=== PATIENT | female | born 1965 | race Asian ===

== ENCOUNTER 2018-11-23 08:51 | Day surgery (SDC) | payer OTHER ==
[~2018-11-23] VITALS: Ht 160 cm; Wt 66.0 kg
[~2018-11-23 08:51] MED LIST: PROPOFOL 200 MG INJ ONE
[2018-11-23 09:54] VITALS: Ht 160 cm; Wt 66.0 kg
[2018-11-23] MEDS ORDERED: HAL1 PO (10:02)
[2018-11-23] MEDS ORDERED: METO1TAB PO (10:02)
[2018-11-23] MEDS ORDERED: CONGENTIN (10:02)
[2018-11-23 10:24] VITALS: BP 159/101; PULSE 63; RESP 23
--- NOTE | 2018-11-23 10:45 | PREAC ---
Date/Time of Note Date/Time of Note DATE: 11/23/18 TIME: 10:44 Anesthesia Eval and Record Evaluation Time Pre-Procedure Interview DATE: 11/23/18 TIME: 10:44 Age 52 Sex female NPO: 8 hrs Preoperative diagnosis gerd Planned procedure egd, colonoscopy Past Medical History Past Medical History: Includes Cardio: HTN GI: GERD Surgery & Anesthesia Issues No known issue Meds Anticoagulation: No Beta Elias within 24 hr: No Reason Beta Elias not given: Pt. not on B-Elias Reported Medications Metoprolol Mercado/Hydrochlorothiaz (Metoprolol ER-Hctz 50-12.5 mg) 1 Each Tab.er.24h, 1 EACH PO DAILY 11/23/18 [Congentin] No Conflict Check, 2 ML DAILY 11/23/18 Haloperidol* (Haldol*) 1 Mg Tab, 6 MG PO DAILY, TAB 11/23/18 Meds reviewed: Yes Allergies Uncoded Allergies: PCN (Adverse Reaction, Severe, RASHES, 11/23/18) Allergies Reviewed: Yes Labs/Studies Labs Reviewed: Reviewed by anesthesiologist test: Negative Studies: ECG Pre-procedure Exam Last vitals Vital Signs Date Temp Pulse Resp B/P (MAP) Pulse Ox O2 O2 Flow FiO2 Time Delivery Rate 11/23/18 98.1 63 23 159/101 98 Room Air 10:24 (120) Airway: Adequate mouth opening, Adequate thyromental dist Mallampati: Mallampati II Teeth: Normal Lung: Normal Heart: Normal ASA Physical Status ASA physical status: 2 Emergency: None Planned Anesthetic General/MAC: Mask Pre-operative Attestations Prior to commencing anesthesia and surgery, the patient was re-evaluated, there was verification of: *The patient's identity *The results of appropriate recent lab work and preoperative vital signs *The above evaluation not changing prior to induction *Anesthetic plan, risk benefits, alternative and complications discussed with p atient/family; questions answered; patient/family understands, accepts and wishes to proceed. VINITA NEVAREZ Nov 23, 2018 10:45
[2018-11-23] MEDS ORDERED: PROPOFOL 40 ML ONE (10:47)
[2018-11-23] MEDS ORDERED: LIDOCAINE 100 MG SYRINGE ONE (10:47)
[2018-11-23 12:14] VITALS: BP 164/100; PULSE 64; RESP 18
--- NOTE | 2018-11-23 14:29 | PAC ---
Date/Time of Note Date/Time of Note DATE: 11/23/18 TIME: 14:29 Post-Anesthesia Notes Post-Anesthesia Note Last documented vital signs Vital Signs Date Temp Pulse Resp B/P (MAP) Pulse Ox O2 O2 Flow FiO2 Time Delivery Rate 11/23/18 97.9 64 18 164/100 97 Room Air 12:14 (121) Activity: WNL Respiratory function: WNL Cardiovascular function: WNL Mental status: Baseline Pain reasonably controlled: Yes Hydration appropriate: Yes Nausea/Vomiting absent: Yes VINITA NEVAREZ Nov 23, 2018 14:29
== END 2018-11-23 12:40 | disposition home or self-care (01) ==
LOC: GIL 08:51
PROVIDERS: ATTEND Internal Medicine Gastroenterology
DX: Z12.11 Encounter for screening for malignant neoplasm of colon (principal); K64.8 Other hemorrhoids; D12.5 Benign neoplasm of sigmoid colon; K21.9 Gastro-esophageal reflux disease without esophagitis
CPT/HCPCS: 43239; 45380; 84703; 88305; J2001; Z7610

== ENCOUNTER 2019-03-22 13:49 | Emergency (ER) | payer OTHER ==
[~2019-03-22] VITALS: Ht 165.1 cm; Wt 65.0 kg
[~2019-03-22 13:49] MED LIST changes: +CONGENTIN; +HAL1 PO; +METO1TAB PO; -PROPOFOL 200 MG INJ ONE
[2019-03-22 14:00] VITALS: Ht 165.1 cm; Wt 65.0 kg
--- NOTE | 2019-03-22 15:08 | ERD ---
ER Documentation Chief Complaint Chief Complaint FALL ON FACE 3-WEEKS AGO HPI 53-year-old female, with history of schizophrenia, currently taking Haldol, presents the emergency department, complaining of frontal headache after sustaining a ground-level fall with direct blunt trauma to the frontal area 3 weeks ago. The patient denies loss of consciousness, no blurred vision, no nausea or vomiting. No reports of distal weakness, numbness or tingling. ROS All systems reviewed and are negative except as per history of present illness. Medications Home Meds Active Scripts Acetaminophen* (Tylenol*) 325 Mg Tablet, 2 TAB PO Q6 PRN for PAIN AND OR ELEVATED TEMP, #20 TAB Prov:MORIAH TESFAYE MD 03/22/19 Reported Medications Metoprolol Mercado/Hydrochlorothiaz (Metoprolol ER-Hctz 50-12.5 mg) 1 Each Tab.er.24h, 1 EACH PO DAILY 11/23/18 [Congentin] No Conflict Check, 2 ML DAILY 11/23/18 Haloperidol* (Haldol*) 1 Mg Tab, 6 MG PO DAILY, TAB 11/23/18 Allergies Allergies: Coded Allergies: Penicillins (Verified Allergy, Unknown, rash, 03/22/19) erythromycin base (Verified Allergy, Unknown, rash, 03/22/19) naproxen (Verified Allergy, Unknown, hives,rash, 03/22/19) PMhx/Soc History of Surgery: Yes (UTERUS REMOVAL OF CELLS PER PT, polyps remocal on colon) Anesthesia Reaction: No Hx Neurological Disorder: No Hx Respiratory Disorders: No Hx Cardiac Disorders: Yes (HTN) Hx Psychiatric Problems: Yes (SCHIZOPRENIA) Hx Miscellaneous Medical Probl: No Hx Alcohol Use: No Hx Substance Use: No Hx Tobacco Use: No Smoking Status: Never smoker FmHx Family History: No diabetes, No coronary disease Physical Exam Vitals Vital Signs Date Temp Pulse Resp B/P (MAP) Pulse Ox O2 O2 Flow FiO2 Time Delivery Rate 03/22/19 98.1 78 16 126/79 99 Room Air 16:50 (95) 03/22/19 98.2 74 16 129/85 99 14:00 (100) Physical Exam Patient alert, oriented, vital signs stable. HEAD: Normocephalic, 3 superficial abrasions, Less than 1 cm,involving the nasal dorsum, frontal area and infraorbital right side, with adequate healing process., EYES: PERRLA, EOMI, Sclera and conjunctiva appear normal. NOSE: Clear and patent nostrils. EARS: Canals clear, tympanic membranes WNL. MOUTH: normal lips and tongue, no oral lesions. THROAT: Normal oropharynx, no tonsillar exudates. NECK: Supple, No lymphadenopathy. Full ROM without pain or tenderness. HEART: RRR, no rubs, murmurs, clicks or gallops. LUNGS: Clear to auscultation. ABDOMEN: Soft, non-tender without masses or hepatosplenomegaly. EXTREMITIES: No edema bilaterally. BACK: Full ROM, no deformity, normal back exam NEURO: Cranial nerves grossly intact, no motor or sensory deficit SKIN: No rashes, no petechia. Procedures/MDM Vital signs stable. Differential diagnosis include but not limited to: Head concussion, contusion, skull fracture, vertebral fracture, intracranial hemorrhage. Physical examination and clinical presentation consistent most likely with facial contusion. During the ED course the patient remained stable, no new complaints. The patient was instructed to follow up with the primary care provider in the next 48h. If symptoms persist, worsen or new symptoms develop like nausea, vomiting, behavioral changes, and lethargy, then patient should return to the ED immediately. Instructions explained and given directly by me to the mother with acknowledgment and demonstrated understanding. Disclaimer: Inadvertent spelling and grammatical errors are likely due to EHR/dictation software use and do not reflect on the overall quality of patient care. Also, please note that the electronic time recorded on this note does not necessarily reflect the actual time of the patient encounter. Departure Diagnosis: Primary Impression: Fall with no significant injury Additional Impression: Facial contusion Condition: Stable Patient Instructions: Facial Contusion, No Wakeup Additional Instructions: thank you very much for allowing us to participate in your care. Your health and safety is our top priority at [facility]. The evaluation in the emergency department has been done to rule out an acute emergency. Chronic, [id number] conditions may have not been evaluated; therefore, you need to follow up with a primary care provider in the next 48h. If symptoms persist, worsen or new symptoms develop, then patient should return to the ED immediately. Call your primary care doctor TOMORROW for an appointment during the next 2-4 days and bring all the information provided. Have prescriptions filled and follow precisely the directions on the label. If the symptoms get worse and your provider is unavailable, return to the Emergency Department immediately. MORIAH TESFAYE MD Mar 22, 2019 15:08
[2019-03-22] MEDS ORDERED: ACET325T33 PO (16:41)
[2019-03-22 16:50] VITALS: BP 126/79; PULSE 78; RESP 16
== END 2019-03-22 16:50 | disposition home or self-care (01) ==
LOC: FTE 13:49
DX: S00.83XA Contusion of other part of head, initial encounter (principal); I10 Essential (primary) hypertension; W18.39XA Other fall on same level, initial encounter; Y92.9 Unspecified place or not applicable
CPT/HCPCS: 70450; Z7502

== ENCOUNTER 2019-06-30 21:21 | Emergency (ER) | payer OTHER ==
[~2019-06-30] VITALS: Ht 160 cm; Wt 67.4 kg
[~2019-06-30 21:21] MED LIST changes: +ACET325T33 PO
[2019-06-30 21:27] VITALS: BP 172/91; PULSE 83; RESP 18; Ht 160 cm; Wt 67.4 kg
[2019-06-30] MEDS ORDERED: ACETAMINOPHEN 325 MG TAB PO ONE (23:00)
== END 2019-07-01 00:24 | disposition home or self-care (01) ==
LOC: FTE 21:21
DX: R50.9 Fever, unspecified (principal); I10 Essential (primary) hypertension
CPT/HCPCS: 81003; Z7502; Z7610; 99282